=== PATIENT | female | born 1995 | race African-American/Black ===

== ENCOUNTER 2020-10-19 14:54 | Emergency (ER) | payer MEDICAID ==
[~2020-10-19] VITALS: Ht 165.1 cm; Wt 73.0 kg
[2020-10-19] MEDS ORDERED: SODIUM CHLORIDE 0.9% 1,000 ML IV ONE (16:15)
[2020-10-19 17:15] LABS: BASOPHILS % 0.9 % (0.0-2.0); EOSINOPHILS % 0.4 % (0.0-5.0); HEMATOCRIT. 41.9 % (36.0-48.0); HEMOGLOBIN. 13.5 g/dL (12.0-16.0); LYMPHOCYTES % 39.3 % (20.0-50.0); MEAN CORPUSCULAR HEMOGLOBIN 22.1 pg (28.0-32.0); MEAN CORPUSCULAR VOLUME 68.8 fL (81.0-99.0); MEAN PLATELET VOLUME 9.4 fl (7.4-10.4); NEUTROPHILS % 46.4 % (40.0-76.0); PLATELET 307 x1000/uL (130-400); RED BLOOD CELL COUNT 6.09 mill/uL (4.2-5.4); RED CELL DISTRIBUTION WIDTH 20.1 % (11.6-14.6)
[2020-10-19 17:22] LABS: CHLORIDE 97 mEq/L (98-107)
[2020-10-19 17:24] LABS: INR 1.1; PROTHROMBIN TIME 11.5 sec (9.6-11.0)
[2020-10-19 17:26] LABS: ETHANOL BLOOD < 10 mg/dL
[2020-10-19 17:43] LABS: CLARITY URINE CLOUDY (CLEAR); COLOR URINE YELLOW (YELLOW); KETONES URINE TRACE (NEGATIVE); LEUKOCYTE ESTERASE URINE NEGATIVE (NEGATIVE); NITRITE URINE NEGATIVE (NEGATIVE); OCCULT BLOOD URINE NEGATIVE (NEGATIVE); PROTEIN URINE 2+ (NEGATIVE); SPECIFIC GRAVITY URINE 1.044 (1.005-1.030); UROBILINOGEN URINE 0.2 E.U./dL (0.2-1.0)
[2020-10-19] MEDS ORDERED: MECLIZINE 25MG TABLET PO ONE (17:45)
[2020-10-19] MEDS ORDERED: KETOROLAC 30MG/ML VIAL IV ONE (17:45)
[2020-10-19] MEDS ORDERED: ONDANSETRON HCL 4MG/2ML INJ IV ONE (17:45)
[2020-10-19 17:51] LABS: HCG SCREEN NEGATIVE
[2020-10-19 17:56] LABS: PLATELET ESTIMATE NORMAL
[2020-10-19 17:58] LABS: *BARBITURATES SCREEN URINE NEGATIVE (NEGATIVE); *BENZODIAZEPINES SCREEN URINE NEGATIVE (NEGATIVE); *COCAINE SCREEN URINE NEGATIVE (NEGATIVE)
[2020-10-19 17:59] LABS: METHADONE URINE SCREEN NEGATIVE (NEGATIVE); OPIATES URINE SCREEN NEGATIVE (NEGATIVE); PHENCYCLIDINE URINE SCREEN NEGATIVE (NEGATIVE)
[2020-10-19 18:12] LABS: *AMPHETAMINES SCREEN URINE PRESUMTIVE POSITIVE (NEGATIVE); CANNABINOID URINE SCREEN PRESUMTIVE POSITIVE (NEGATIVE)
[2020-10-19] MEDS ORDERED: OMEP20CA14 MT (19:56)
[2020-10-19] MEDS ORDERED: MECL-159 MT (19:56)
[2020-10-19 20:03] VITALS: BP 113/70
== END 2020-10-19 20:17 | disposition home or self-care (01) ==
LOC: ER 14:54
DX: R10.13 Epigastric pain (principal); R11.2 Nausea with vomiting, unspecified; R42 Dizziness and giddiness; F15.10 Other stimulant abuse, uncomplicated; R53.1 Weakness
CPT/HCPCS: 36415; 71045; 80053; 80305; 80320; 81003; 81025; 83690; 84484; 84703; 85025; 85610; 93005; 96361; 96374; 96375; 99285; J1885; J2405; J7030; J8597; G0480

== ENCOUNTER 2020-12-21 16:19 | Emergency (ER) | payer MEDICAID ==
[~2020-12-21] VITALS: Ht 172.7 cm; Wt 50.0 kg
[~2020-12-21 16:19] MED LIST: MECL-159 MT; OMEP20CA14 MT
[2020-12-21 16:36] VITALS: BP 140/72
== END 2020-12-21 20:15 | disposition left against medical advice (07) ==
LOC: ER 16:19
DX: Z53.21 Procedure and treatment not carried out due to patient leaving prior to being seen by health care provider (principal)